=== PATIENT | male | born 1960 | race Caucasian/White ===

== ENCOUNTER 2021-08-28 20:51 | Emergency (ER) | payer OTHER ==
[~2021-08-28] VITALS: Ht 188 cm; Wt 98.4 kg
[2021-08-28 21:10] VITALS: BP 159/92
--- NOTE | 2021-08-28 21:31 | PHYS DOC ---
Past History Past Medical History: Cancer Past Medical History Prostate Cancer 09/2016- still PSA+ Alcohol Use: Rarely General Adult EDM: Chief Complaint: PENIS PROBLEM HPI: HPI: ".. I have had an erection now for 4-1/2 hours,,, I cannot get it to go down,,, I use ice packs ....taken Sudafed and is getting quite uncomfortable... I has to use the Trimix preparation for erection.. I have had used meds since my prostate cancer surgery.. To get an erection.. I have never had this really happened before... I even used less dose today..." Patient is a 60 year old male who presents with above hx and complaints. Patient after use of "Trimix" injection. Patient history of inability produce and maintain erection without drugs since his radical prostate surgery. In September 2016. Patient has not had any radiation therapy or chemotherapy. Reportedly the prostates cancer was confined to the prostate. However patient's PSA has not returned to baseline. PSA is however not high enough to start radiation or chemotherapy. Patient normally follows at [facility]. Patient injected Trimix on the left base of penis. Approximately 4-1/2 hours ago. Patient attempted to use ice packs and Sudafed without success reducing his erection. A pharmacy order was placed for phenylephrine 10ml of 1000 ug . Patient became impatient and left the ED at the time the medicine arrived from pharmacy. Patient had been in the ED for only 30 minutes. I called his since he did not have a phone number on check-in. I advised her if he went to another ED he had still be probably 30 to 40 minutes more delay before they would be able to address his concerns, as well as travel time to get to another hospital. She said she would tell him to come back to the ED. Patient did return to ED and I administered 500 mics of phenylephrine after lidocaine injection and Betadine prep. Patient had almost immediate response to the meds. Did not appear to have any residual clotting. Review of Systems: Review of Systems: Constitutional: Denies fever or chills Eyes: Denies change in visual acuity HENT: Denies nasal congestion or sore throat Respiratory: Denies cough or shortness of breath Cardiovascular: Denies chest pain or edema GI: Denies abdominal pain, nausea, vomiting, bloody stools or diarrhea : Complains of priapism after injecting "Trimix" Musculoskeletal: Denies back pain or joint pain Integument: Denies rash Neurologic: Denies headache, focal weakness or sensory changes Endocrine: Denies polyuria or polydipsia Lymphatic: Denies swollen glands Psychiatric: Denies depression or anxiety Family History: Family History: Noncontributory to presentation Current Medications: Current Meds: See nursing for home meds Allergies: Allergies: Allergies Coded Allergies Type Severity Reaction Last Updated Verified No Known Drug Allergies 08/28/21 No Physical Exam: PE: Constitutional: well nourished, moderate acute distress, very anxious, non- toxic appearance. [] HENT: Normocephalic, atraumatic, bilateral external ears normal, oropharynx moist, no oral exudates, nose normal. [] Eyes: PERRLA, EOMI, conjunctiva normal, no discharge. [] Neck: Normal range of motion, no tenderness, supple, no stridor. [] Cardiovascular:Heart rate regular rhythm, no murmur [] Lungs & Thorax: Bilateral breath sounds clear to auscultation [] Abdomen: Bowel sounds normal, soft, no tenderness, no masses, no pulsatile masses. Old surgery scars. Testicles descended. Erection. Circumcised male. Injection site at base of penis. Skin: Warm, dry, no erythema, no rash. [] Back: No tenderness, no CVA tenderness. [] Extremities: No tenderness, no cyanosis, no clubbing, ROM intact, no edema. [] Neurologic: Alert and oriented X 3, normal motor function, normal sensory function, no focal deficits noted. [] Psychologic: Affect very anxious and very impatient, judgement normal, mood normal. [] EKG: EKG: [] Radiology/Procedures: Radiology/Procedures: [] Heart Score: C/O Chest Pain: N/A Risk Factors: Risk Factors: DM, Current or recent (<one month) smoker, HTN, HLP, family history of CAD, obesity. Risk Scores: Score 0 - 3: 2.5% MACE over next 6 weeks - Discharge Home Score 4 - 6: 20.3% MACE over next 6 weeks - Admit for Clinical Observation Score 7 - 10: 72.7% MACE over next 6 weeks - Early Invasive Strategies Course & Med Decision Making: Course & Med Decision Making Pertinent Labs and Imaging studies reviewed. (See chart for details) Procedure note: Per HPI Advised patient to take additional dose of Sudafed after arriving home. Can use ice packs. Monitor for infection. Avoid use of the"Trimix" injections until he discusses it with his urologist. Consider discussing with his urologist meds to reverse the effects of the 'Trimix". Impression: [] Saúl Disclaimer: Saúl Disclaimer: This electronic medical record was generated, in whole or in part, using a voice recognition dictation system. Departure Departure: Referrals: ADRIAN HERRERA DO (PCP) Saúl Disclaimer This chart was dictated in whole or in part using Voice Recognition software in a busy, high-work load, and often noisy Emergency Department environment. It may contain unintended and wholly unrecognized errors or omissions. SREE WILSON MD Aug 28, 2021 21:31
[2021-08-28] MEDS ORDERED: LIDOCAINE 2% 20 ML VIAL. IJ ONE (21:45)
[2021-08-28] MEDS ORDERED: NORMAL SALINE IV PRN ×4 (21:45→22:35)
[2021-08-28] MEDS ORDERED: PHENYLEPHRINE IV PRN ×4 (21:45→22:35)
== END 2021-08-28 23:24 | disposition home or self-care (01) ==
LOC: ER 20:51
DX: N48.33 Priapism, drug-induced (principal); Z85.46 Personal history of malignant neoplasm of prostate
CPT/HCPCS: 54235; 99284; J2001